=== PATIENT | male | born 1980 | race Caucasian/White ===

== ENCOUNTER 2025-07-03 07:13 | Emergency (ER) | payer OTHER ==
[~2025-07-03] VITALS: Ht 170.2 cm; Wt 66.2 kg
[~2025-07-03 07:13] MED LIST: ATIVAN1 MG PO; SYNTHROID,LEVO25 MCG PO; ZOFRAN4 MG PO
[2025-07-03 07:31] LABS: BASO # 0.1 10*3/uL (0.0-0.1); BASO % 1.2 % (0.0-1.0); EOS # 0.4 10*3/uL (0.0-0.4); EOS % 4.7 % (1.0-4.0); MEAN CELL VOLUME 90.7 fl (80.0-94.0); MEAN CORPUSCULAR HGB 29.7 pg (27.0-31.0); MEAN PLATELET VOLUME 8.6 fl (9.6-12.3); MONO # 0.7 10*3/uL (0.1-1.0); MONO % 8.7 % (3.0-9.0); NEUT # 4.7 10*3/uL (2.3-7.9); NEUT % 57.0 % (47.0-73.0); NUCLEATED RED BLOOD CELL 0.0 % (0.0-0.0); NUCLEATED RED BLOOD CELL 0.0 10*3/uL (0.0-0.0); PLATELET COUNT AUTOMATED 283 10*3/uL (130-400); RED CELL DISTRI WIDTH 13.2 % (0-14.5)
[2025-07-03 07:42] LABS: ACT PARTIAL THROMBO TIME 24.6 SECONDS (20.0-32.1)
[2025-07-03 07:53] LABS: BUN 12 mg/dl (9-23); SGPT/ALT 34 U/L (5-49)
[2025-07-03] MEDS ORDERED: IBUPROFEN 800 MG TAB PO ONE (08:10)
[2025-07-03] MEDS ORDERED: ZITHROMAX TRI-500 M1 PO (09:17)
[2025-07-03] MEDS ORDERED: IBU400 M1 PO (09:17)
== END 2025-07-03 10:11 | disposition home or self-care (01) ==
LOC: ED 07:13
PROVIDERS: Emergency Medicine
DX: R07.82 Intercostal pain (principal); R05.9 Cough, unspecified; Z79.899 Other long term (current) drug therapy